=== PATIENT | female | born 1985 | race Caucasian/White ===

== ENCOUNTER 2017-01-12 07:41 | Emergency (ER) | payer OTHER, BC ==
[~2017-01-12] VITALS: Ht 157.5 cm; Wt 98.0 kg
[~2017-01-12 07:41] MED LIST: ACET1CAP19 PO; FLUT0.0529 NAE; MULT-513 PO; NAPR500T3 PO; STEROID CREAM TOP
[2017-01-12 07:47] VITALS: TEMP 37.4; Ht 157.5 cm; Wt 98.0 kg
[2017-01-12] MEDS ORDERED: BUPIVACAINE 0.5 % 5 MG/1 ML MPF 30ML VIAL ONE (07:54)
[2017-01-12] MEDS ORDERED: LIDOCAINE HCL 1% 20 ML VIAL ONE (07:55)
--- NOTE | 2017-01-12 07:57 | EMERGENCY ROOM VISIT NOTE ---
ED Visit Note First contact with patient: 07:50 CHIEF COMPLAINT: Finger laceration HISTORY OF PRESENT ILLNESS: This 31-year-old female patient presents to the emergency department ambulatory after cutting the left first finger with a knife at work just prior to arrival. The bleeding has stopped. Denies weakness or numbness of the finger. The patient has full range of motion of the fingers. The patient denies any pain. The patient denies any other injuries. The patient' s tetanus shot is up to date. REVIEW OF SYSTEMS: A 6 system review of systems was completed with positives and pertinent negatives listed in the HPI. ALLERGIES: Amoxicillin MEDICATIONS: Cholesterol medication PMH: Hyperlipidemia SOCIAL HISTORY: The patient does not smoke. She is employed PHYSICAL EXAM: Vital Signs: Reviewed Nurse's notes, vital signs stable. GENERAL : This is a 31-year-old female, in no acute distress, well developed, well nourished. SKIN: There is a 3 cm long flap-like laceration on the palmar aspect of the left first finger. The edges gape apart with traction. There is no foreign material in the wound and it looks clean. There is no significant bleeding. No deep structures such as tendons, bones, or nerves are seen in the base of the wound. Extension and flexion of the finger is full and strong. Full range of motion of the wrist and other fingers. Capillary refill less than 2 seconds. Normal sensation to light and sharp touch. EMERGENCY DEPARTMENT COURSE: I examined the patient. Using sterile technique the wound was cleaned with Betadine. A total of 6 ml of 1% buffered lidocaine and 0.5% Marcaine was used to perform a digital block to anesthetize the patient. The area was sterilely draped. Once the patient was numb, the wound was copiously irrigated under pressure with sterile saline. The wound was explored in a bloodless field after tourniquet was applied and there were no deep structures such as tendons, bone, or ligaments present. The laceration was repaired using 8 simple interrupted 5-0 nylon sutures. The patient tolerated the procedure well. The bleeding stopped. The area was cleaned with sterile saline and dressed with bacitracin ointment and bandage. She was advised that the tissue flap may and fall off. The patient was discharged home in good condition. DIAGNOSIS: Finger laceration DISCHARGE INSTRUCTIONS & TREATMENT: Keep wound clean and dry. Do not allow any crusting or dried blood to accumulate on sutures. If this occurs, use a 1:1 solution of hydrogen peroxide/water on a Q-tip to clean the wound. Use an antibiotic ointment for 3-4 days, then let wound dry. Suture removal in 12 days. Return sooner for any signs of infection (increasing redness, swelling, drainage). Ice and elevate for swelling and pain. Ibuprofen 600 mgevery 6 hrs for pain. Keep covered when in sun until sutures removed then SPF 50 or higher for one year. Vitamin E oil if desired two weeks after suture removal for reduction of scar. Problem List Medical Problems: (1) Hypertension Status: Resolved Surgical Problems: (1) Adrian teeth extracted Status: Resolved Current/Historical Medications Scheduled Multivitamins/Minerals (Mvi With Minerals), 1 TAB PO DAILY Allergies Coded Allergies: Amoxicillin (Verified Allergy, Severe, RASH, 01/12/17) Vital Signs Date Time Temp Pulse Resp B/P Pulse Ox O2 Delivery O2 Flow Rate FiO2 01/12/17 08:35 100 18 158/111 96 01/12/17 07:47 37.4 111 18 164/79 98 Departure Information Impression Primary Impression: Finger laceration Additional Impression: Work related injury Dispostion Home / Self-Care Condition GOOD Referrals No Doctor, Assigned (PCP) Patient Instructions ED Laceration All, [facility] Additional Instructions Keep wound clean and dry. Do not allow any crusting or dried blood to accumulate on sutures. If this occurs, use a 1:1 solution of hydrogen peroxide/ water on a Q-tip to clean the wound. Use an antibiotic ointment for 3-4 days, then let wound dry. Suture removal in 12 days. Return sooner for any signs of infection (increasing redness, swelling, drainage). Ice and elevate for swelling and pain. Ibuprofen 600 mgevery 6 hrs for pain. Keep covered when in sun until sutures removed then SPF 50 or higher for one year. Vitamin E oil if desired two weeks after suture removal for reduction of scar. Problem Qualifiers Primary Impression: Finger laceration Encounter type: initial encounter Qualified Codes: S61.219A - Laceration without foreign body of unspecified finger without damage to nail, initial encounter
[2017-01-12 08:35] VITALS: BP 158/111; PULSE 100; O2SAT 96
== END 2017-01-12 08:36 | disposition home or self-care (01) ==
LOC: C.EDB 07:43
DX: S61.211A Laceration without foreign body of left index finger without damage to nail, initial encounter (principal); W26.0XXA Contact with knife, initial encounter; I10 Essential (primary) hypertension; Z98.818 Other dental procedure status